=== PATIENT | male | born 1995 | race Caucasian/White ===

== ENCOUNTER 2018-12-18 17:43 | Inpatient (IN) | payer MEDICAID ==
[~2018-12-18] VITALS: Ht 175.3 cm; Wt 59.0 kg
--- NOTE | 2018-12-18 17:45 | NUR ---
PT BIBA BLS ON 5150 TO BED 8
[2018-12-18 17:47] VITALS: BP 115/67
--- NOTE | 2018-12-18 18:02 | NUR ---
SPOKE WITH MARA FROM POISON CONTROL ; RECOMMENDED TYLENOL CMP LIVER ENZYMES AND ASPIRIN LEVELS IF TYLENOLE LEVEL >10 AND OR LIVER ENZYMES ELEVATED START MUCOMYST PLEASE CALL BACK POISON CONTROL WITH LAB RESULTS
--- NOTE | 2018-12-18 18:03 | NUR ---
23/M STARR FROM A SMALL [place] C/O TOOK A BUNCH OF TYLENOL X TODAY. PT STATED WANT TO KILL HIMSELF & ALSO STATED HE WOUND BLOW HIS HEAD OFF. HX : ANXIETY, DEPRESSION MED:WELBUTRIN Addendum: 12/18/18 at 1805 by [email or web address] PT IS A HOMELESS
[2018-12-18 18:53] LABS: ANION GAP 10.1 (8-16); CARBON DIOXIDE 28.8 mmol/L (21-32); CREATININE 0.6 mg/dL (0.7-1.3); POTASSIUM 3.9 mmol/L (3.5-5.1)
[2018-12-18 18:53] LABS: APPEARANCE,URINE CLEAR (CLEAR); BILIRUBIN,URINE NEGATIVE (NEGATIVE); BLOOD, URINE NEGATIVE (NEGATIVE); COLOR,URINE YELLOW (YELLOW); LEUKOCYTE ESTERASE ,URINE NEGATIVE (NEGATIVE); NITRITE, URINE NEGATIVE (NEGATIVE); UGLUCOSE NEGATIVE (NEGATIVE)
[2018-12-18 18:55] LABS: SALICYLATE < 2.8 mg/dL (2.8-20.0)
[2018-12-18 18:58] LABS: BASOPHILS % (AUTO) 0.6 % (0.0-2.0); BILIRUBIN,DIRECT 0.1 mg/dL (0.0-0.3); EOSINOPHILS # (AUTO) 0.2 K/uL (0-0.4); EOSINOPHILS % (AUTO) 4.4 % (0.0-4.0); HEMATOCRIT 46.5 % (36-52); HEMOGLOBIN 15.6 g/dL (12.0-18.0); LYMPHOCYTES % (AUTO) 36.4 % (20.5-51.1); MEAN CORPUSCULAR HEMOGLOBIN 27 pg (27-31); MEAN CORPUSCULAR HGB CONC 33 g/dL (33-37); MEAN CORPUSCULAR VOLUME 82.1 fL (80-94); MONOCYTES # (AUTO) 0.5 K/uL (0.8-1.0); NEUTROPHILS # (AUTO) 2.8 K/uL (1.8-7.7); NEUTROPHILS % (AUTO) 50.6 % (42.2-75.2); PLATELET COUNT (AUTO) 257 K/uL (140-450); RED BLOOD CELL COUNT(AUTO) 5.67 MIL/uL (4.20-6.10); RED CELL DISTRIBUTION WIDTH 13.1 % (11.6-13.7); TOTAL BILIRUBIN 0.3 mg/dL (0.0-1.0); WHITE BLOOD COUNT (AUTO) 5.6 K/uL (4.8-10.8)
--- NOTE | 2018-12-18 19:05 | NUR ---
ASSUMED CARE OF PT FROM SIN MCCULLOUGH
--- NOTE | 2018-12-18 19:05 | NUR ---
Pt report given to DESTINY VOGT. Transfer of care at this time.
[2018-12-18 19:06] LABS: ALBUMIN 4.1 g/dL (3.4-5.0)
[2018-12-18 19:18] LABS: BARBITURATE, URINE NEG. ng/ml (NEG <=200); BENZODIAZEPINE, URINE NEG. ng/mL (NEG <=200); CANNABINOID, URINE NEG. ng/mL (NEG <=50); COCAINE, URINE NEG. ng/mL (NEG <=300); OPIATE, URINE NEG. ng/mL (NEG <=2000); PHENCYCLIDINE SCREEN,URINE NEG. ng/mL (NEG <=25)
[2018-12-18 19:19] LABS: ACETONE, SERUM NEGATIVE (NEGATIVE)
--- NOTE | 2018-12-18 19:24 | NUR ---
EKG PERFORMED AT BEDSIDE. PT COVERED IN GOWN AND BLANKET DURING PROCEDURE
--- NOTE | 2018-12-18 19:54 | NUR ---
KERI WILKINSON REQUEST FOR TELEPSYC SENT Addendum: 12/18/18 at 2002 by MEDDM PER REQUEST FOR TELEPSYC SENT
--- NOTE | 2018-12-18 20:20 | NUR ---
SPOKE TO DR. VALADEZ FOR TELEPSYCH UPDATE
--- NOTE | 2018-12-18 20:46 | NUR ---
SPOKE SETH FROM POSION CONTROL POSION CONTROL TO CLOSE CASE. SPOKE TO DR VALADEZ, WILL SEND REPORT RECOMEDNING INPATIENT PSYCHIATRIC PLACEMENT.
--- NOTE | 2018-12-18 22:21 | NUR ---
PT RESTING AT THIS TIME, NO NEW CONCERNS. SITTER AT [facility].
--- NOTE | 2018-12-18 22:26 | NUR ---
CHI FROM [facility] CALLED TO UPDATE;[facility], [facility] NO BEDS AVAILABLE, WAS UNABLE TO REACH [facility]
[2018-12-18] MEDS ORDERED: ACETAMINOPHEN 325 MG TAB PO PRN (22:45)
[2018-12-18] MEDS ORDERED: ONDANSETRON 4 MG/2 ML VIAL IM/IVP PRN (22:45)
[2018-12-18] MEDS ORDERED: HYDROcodone/APAP 7.5/325 MG 1 TAB PO PRN (22:45)
--- NOTE | 2018-12-18 22:56 | NUR ---
Pt transferred to Med/Surg via 109B .
[2018-12-18 23:00] VITALS: BP 106/55
--- NOTE | 2018-12-18 23:00 | NUR ---
RECEIVED BEDSIDE REPORT FROM TURKISH RUBBER, PATIENT AMBULATORY, STEADY GAIT. V/S TAKEN BP 106/55 HR 60 O2SAT 99% RR 14 TEMP 97.6 DENIES PAIN. IV IN LEFT AC 20G, PATIENT, DRESSING INTACT, MRSA SCREEN COLLECTED AND SENT TO LAB, PATIENT REFUSES TO ANSWER SOME ADMISSION QUESTIONS, UNCOOPERATIVE AT TIMES, SKIN INTACT. OFFERED FOOD. PATIENT REQUEST TO SLEEP. WILL START 1:1 SITTER.
--- NOTE | 2018-12-18 23:07 | NUR ---
Patient will be admitted to care of DR CADE. Admited to MED SURG. Will go to [id number]. Belongings list completed. Report to SIN TSE.
[2018-12-18 23:22] LABS: CHOL/HDL RATIO 2.4 (1-4.5); MAGNESIUM 2.1 mg/dL (1.8-2.4); PHOSPHORUS 3.4 mg/dL (2.5-4.9); THYROID STIMULATING HORMONE 0.18 uIU/mL (0.34-3.74)
[2018-12-18 23:30] LABS: PROTHROMBIN TIME 9.8 secs (10.8-13.4)
[2018-12-18] MEDS ORDERED: LORazepam 0.5 MG TAB PO PRN (23:40)
--- NOTE | 2018-12-18 23:45 | NUR ---
EXPLAINED ORDER FOR SCD TO AID IN CIRCULATION WHILE IN BED, PATIENT STATED I DON'T NEED THAT.
--- NOTE | 2018-12-19 | NUR ---
DR HERBERT AT BEDSIDE, PATIENT RESPONDING YES TO MOST QUESTIONS, DENIES AT HOME MEDICATIONS. ASSESSMENT WAS LIMIT DUE TO PATIENT NOT WANTING TO INTERVIEW, PATIENTS ANSWERS MAY BE UNRELIABLE. WILL CONTINUE WITH 1:1 SITTER.
--- NOTE | 2018-12-19 02:10 | NUR ---
PATIENT SLEEPING IN BED, CONTINUE WITH 1:1 SITTER. WILL CONTINUE TO MONITOR.
--- NOTE | 2018-12-19 04:02 | NUR ---
PATIENT SLEEPING, NO SIGNS OF DISTRESS. WILL CONTINUE 1:1 SITTER.
--- NOTE | 2018-12-19 06:21 | NUR ---
PATIENT HAS BEEN SCREENED AND CATEGORIZED LOW NUTRITION RISK. PATIENT WILL BE SEEN WITHIN 7 DAYS OF ADMISSION. 12/24/18 ELVA TOTH MS, RDN
--- NOTE | 2018-12-19 06:38 | NUR ---
CALLED DR VILLALOBOS, NOTIFIED OF CONSULT FOR ATTEMPTED SUICIDE AND PLACED ON [address] HE STATED HE WILL VISIT AROUND NOON TODAY. WILL ENDORSE TO DAY SHIFT NURSE.
--- NOTE | 2018-12-19 07:15 | NUR ---
ENDORSED PATIENT TO DAY SHIFT NURSE, PATIENT STABLE.
[2018-12-19 07:19] LABS: ANION GAP 9.4 (8-16); CARBON DIOXIDE 28.6 mmol/L (21-32); CREATININE 0.8 mg/dL (0.7-1.3)
--- NOTE | 2018-12-19 07:21 | NUR ---
RECEIVED BEDSIDE REPORT FROM AGRICULTURAL INSPECTOR RN. PATIENT SLEEPING IN BED, EYES OPENING TO VOICE. PATIENT NOT RESPONDING TO QUESTIONING AT THIS TIME BUT FOLLOWS COMMANDS. PER AGRICULTURAL INSPECTOR RN, PATIENT AMBULATORY WITH STEADY GAIT. NO C/O PAIN OR DISCOMFORT. VITALS STABLE. IV IN LEFT AC 20G, PATENT AND ASYMPTOMATIC, ON SL. SKIN INTACT. 1:1 SITTER AT BEDSIDE. ALL SAFETY PRECAUTIONS IN PLACE, WILL CONTINUE TO MONITOR.
[2018-12-19 07:50] LABS: BASOPHILS % (AUTO) 0.6 % (0.0-2.0); EOSINOPHILS # (AUTO) 0.2 K/uL (0-0.4); EOSINOPHILS % (AUTO) 4.9 % (0.0-4.0); HEMATOCRIT 46.3 % (36-52); HEMOGLOBIN 15.5 g/dL (12.0-18.0); LYMPHOCYTES # (AUTO) 1.9 K/uL (2.0-11.5); LYMPHOCYTES % (AUTO) 38.3 % (20.5-51.1); MEAN CORPUSCULAR HEMOGLOBIN 28 pg (27-31); MEAN CORPUSCULAR HGB CONC 33 g/dL (33-37); MEAN CORPUSCULAR VOLUME 82.3 fL (80-94); MONOCYTES # (AUTO) 0.5 K/uL (0.8-1.0); MONOCYTES % (AUTO) 10.2 % (1.7-9.3); NEUTROPHILS # (AUTO) 2.2 K/uL (1.8-7.7); PLATELET COUNT (AUTO) 265 K/uL (140-450); RED BLOOD CELL COUNT(AUTO) 5.62 MIL/uL (4.20-6.10); RED CELL DISTRIBUTION WIDTH 13.6 % (11.6-13.7); WHITE BLOOD COUNT (AUTO) 4.9 K/uL (4.8-10.8)
[2018-12-19 08:00] VITALS: BP 113/71
--- NOTE | 2018-12-19 09:41 | NUR ---
Late Entry Packet faxed over to [facility], [facility], and [facility]. No update from contacted facilities. will update unit when new info has been received.
--- NOTE | 2018-12-19 12:15 | NUR ---
PATIENT SLEEPING IN BED, RESPIRATIONS EVEN AND UNLABORED. NO S/S DISTRESS. SITTER AT BEDSIDE. WILL CONTINUE TO MONITOR.
--- NOTE | 2018-12-19 15:12 | NUR ---
PT SLEEPING IN BED, NO S/S DISTRESS. ALL SAFETY PRECAUTIONS IN PLACE, WILL CONTINUE TO MONITOR.
[2018-12-19 16:00] VITALS: BP 107/70
--- NOTE | 2018-12-19 18:46 | NUR ---
No update from contacted facilities at this time, no beds available. will endorse to night warehouse manager to continue looking for placement.
--- NOTE | 2018-12-19 19:36 | NUR ---
ENDORSED POC TO GARAGE DOOR OPENER INSTALLER RN. PT IN STABLE CONDITION.
--- NOTE | 2018-12-19 19:37 | NUR ---
RECEIVED REPORT FROM DAYSHIFT NURSE AT BEDSIDE FOR CONTINUITY OF CARE. PT SLEEPING. PT REFUSES TO SPEAK. NO SOB NO S/S OF DISTRESS ON RA. BED LOWERED. SITTER AT BEDSIDE WILL CONTINUE TO MONITOR.
--- NOTE | 2018-12-19 20:00 | NUR ---
ASSESSED PT SLEEPING NO SOB NO S/S OF DISTRESS ON RA. WILL CONTINUE TO MONITOR.
[2018-12-19] MEDS: OLANZapine 5 MG TAB PO SCH (20:10)
--- NOTE | 2018-12-19 20:30 | NUR ---
ATTEMPTED TO ASSESS VITALS PT TOO DROWSY OR IGNORING ME. WILL COME BACK LATER.
--- NOTE | 2018-12-19 21:00 | NUR ---
I WOKE UP PT AND LET HIM KNOW ABOUT HIS MED. PT FOLLOWED COMMANDS BUT DID NOT SPEAK TO ME. PT SWALLOWED MED AND I LET HIM KNOW I WILL BE ASSESSING HIS BP.PT FOLLOWED COMMANDS. WILL CONTINUE TO MONITOR.
[2018-12-20] VITALS: BP 94/75
--- NOTE | 2018-12-20 00:26 | NUR ---
PT SLEEPING NO SOB NO S/S OF DISTRESS ON RA. WILL CONTINUE TO MONITOR.
--- NOTE | 2018-12-20 03:40 | NUR ---
Still no beds available at any of the designated facilities [facility]- [facility] intake [facility] Neha rn relief charge nurse made aware .
--- NOTE | 2018-12-20 04:00 | NUR ---
PT SLEEPING NO SOB NO S/S OF DISTRESS ON RA.
--- NOTE | 2018-12-20 07:21 | NUR ---
ENDORSED REPORT TO DAYSHIFT NURSE AT BEDSIDE FOR CONTINUITY OF CARE.
--- NOTE | 2018-12-20 07:22 | NUR ---
RECEIVED BEDSIDE REPORT FROM AUTO RADIATOR MECHANIC NURSE. PATIENT SLEEPING AT THIS TIME. PATIENT ON MED SURGE AND STANDARD PRECAUTIONS IN PLACE. PATIENT WITH 1:1 SITTER FOR 5150 HOLD FOR DANGER TO SELF. PATIENT ON ROOM AIR, NO DISTRESS NOTED. SKIN INTACT. IV ON R AC 20 G SALINE LOCK. IV CLEAN DRY AND INTACT. BED IN LOW POSITION, CALL LIGHT WITHIN REACH. WILL CONTINUE TO MONITOR.
[2018-12-20 08:00] VITALS: BP 99/58
[2018-12-20 08:15] LABS: T4 (THYROXINE) 6.9 ug/dL (4.5-12.0)
[2018-12-20] MEDS: OLANZapine 5 MG TAB PO SCH ×2 (09:39→20:43)
--- NOTE | 2018-12-20 09:42 | NUR ---
ADMINISTERED SCHEDULED MEDS. PATIENT TOLERATED WELL. WILL CONTINUE TO MONITOR.
--- NOTE | 2018-12-20 11:46 | NUR ---
Contacted [facility], [facility] and [facility], still no beds available and no eta. [facility] will continue to monitor and follow up with contracted facilities for availability and keep [facility] informed.
--- NOTE | 2018-12-20 19:00 | NUR ---
RECEIVED PT SLEEPING, EASILY AROUSABLE, AAOX4, CALM AND COOPERATIVE, VERBALLY RESPONSIVE, DENIES SUICIDAL IDEATION OR ANY HALLUCINATION, ON 5150 HOLD, SITTER IN PLACE.
--- NOTE | 2018-12-20 19:12 | NUR ---
Research Anthropologist's Notes : These teletypewriter operator attempted to meet with Patient for a screen, Patient refused to discuss any information at the time.
--- NOTE | 2018-12-20 20:49 | NUR ---
DUE MEDICATION TAKEN, PROVIDED WITH CRACKERS AND JUICE PER REQUEST, ALL NEEDS ATTENDED.
--- NOTE | 2018-12-20 23:20 | NUR ---
PT SLEEPING, EASILY AROUSABLE, VITAL SIGNS STABLE, DENIES ANY PAIN, PT WENT BACK TO SLEEP, CONTINUE TO MONITOR CLOSELY, SITTER IN PLACE.
[2018-12-21] VITALS: BP 98/51
--- NOTE | 2018-12-21 03:00 | NUR ---
PT CONTINUE TO SLEEP, NO SIGNS OF DISTRESS, CONTINUE TO MONITOR CLOSELY
--- NOTE | 2018-12-21 03:42 | NUR ---
Charge Nurse Ana made aware , there are still no vacancy at any of the designated facilities , will endorsed to AM shift to continue to look for placement.
--- NOTE | 2018-12-21 03:42 | NUR ---
REGIONAL DIGITAL PROJECT MANAGER CALLED, STILL NO BED AVAILABLE.
--- NOTE | 2018-12-21 06:24 | NUR ---
PT REFUSED AM LAB DRAW, RISK AND BENEFITS EXPLAINED BUT STILL REFUSING, WILL ENDORSE TO AM SHIFT.
--- NOTE | 2018-12-21 07:04 | NUR ---
PT SLEEPING, NO SIGNS OF DISTRESS, REPORT GIVEN TO SIN RUDOLPH FOR CONTINUITY OF CARE, SITTER IN PLACE.
--- NOTE | 2018-12-21 07:05 | NUR ---
RECEIVED REPORT FROM WHEEL SHOP SUPERVISOR NURSE. PATIENT SLEEPING. ON ROOM AIR, NO DISTRESS NOTED. SKIN INTACT. IV ON R AC 20 G SALINE LOCK. IV CLEAN DRY AND INTACT. SITTER AT BEDSIDE FOR 5150 HOLD. PATIENT ON MED SURGE AND STANDARD PRECAUTIONS. BED IN LOW POSITION, CALL LIGHT WITHIN REACH. WILL CONTINUE TO MONITOR.
[2018-12-21 08:00] VITALS: BP 92/53
[2018-12-21] MEDS: OLANZapine 5 MG TAB PO SCH (09:58)
--- NOTE | 2018-12-21 10:00 | NUR ---
Steel Pourer Note: I called and spoke with Daniela at [facility] , I asked her they had patient's inquiry. Per Daniela, they don't have inquiry. She stated they don't have any beds available at this time but will have discharges today. I faxed inquiry to [facility]. Addendum: 12/21/18 at 1239 by Melissa RODAS I asked her if they had patient's inquiry
--- NOTE | 2018-12-21 10:15 | NUR ---
PATIENT SLEEPING. NO DISTRESS NOTED, ON ROOM AIR. WILL CONTINUE TO MONITOR.
--- NOTE | 2018-12-21 12:25 | NUR ---
Accounts Supervisor Note: I received a call from Bridget at [facility] , she stated patient has been accepted and may go to their [place], address [address] [place] [id number], room number 12B, accepting physician is , phone number for report , charge nurse Annalee made aware. Bridget told me patient can be transfer to their facility anytime today.
[2018-12-21] MEDS ORDERED: OLAN5TAB30 PO (13:14)
--- NOTE | 2018-12-21 13:34 | NUR ---
PATIENT ATE LUNCH. PATIENT TOLERATED WELL. WILL CONTINUE TO MONITOR.
--- NOTE | 2018-12-21 14:17 | NUR ---
GAVE REPORT TO SIN LARA FROM [facility]. ANSWERED ALL QUESTIONS AND CONCERNS.
--- NOTE | 2018-12-21 15:10 | NUR ---
GAVE DISCHARGE INSTRUCTIONS TO PATIENT. PATIENT EDUCATED ON FOLLOW UP WITH NUCLEAR PROCESS ENGINEER IN 6-8 WEEKS FOR TSH AND T4 LEVELS. PATIENT EDUCATED ON 5150 HOLD FOR DANGER TO SELF. PATIENT VERBALIZED UNDERSTANDING FOR REASON FOR TRANSFER TO [facility]. PATIENT HAS ALL PERSONAL BELONGINGS INCLUDING DISCHARGE PACKET. REMOVED WRIST BAND AND IV, TIP INTACT. ANSWERED ALL QUESTIONS AND CONCERNS OF PATIENT.
== END 2018-12-21 15:10 | DRG 817 ==
LOC: MED 17:43 → MTU 22:43
PROVIDERS: ADMIT General Practice; ATTEND General Practice
DX: T43.622A Poisoning by amphetamines, intentional self-harm, initial encounter (principal); R45.851 Suicidal ideations; E03.9 Hypothyroidism, unspecified; E05.90 Thyrotoxicosis, unspecified without thyrotoxic crisis or storm; F32.9 Major depressive disorder, single episode, unspecified; F15.10 Other stimulant abuse, uncomplicated; F41.9 Anxiety disorder, unspecified; Z60.2 Problems related to living alone
CPT/HCPCS: 36415; 71045; 80048; 80076; 80305; 81003; 82009; 82150; 83036; 83690; 83735; 83880; 84100; 84436; 84443; 84479; 85025; 85610; 85730; 87081; 93005; 99285; G0480; G0482; Q0092